=== PATIENT | female | born 1940 | race Caucasian/White ===

== ENCOUNTER 2017-09-02 07:07 | Inpatient (IN) | payer MEDICARE ==
[~2017-09-02] VITALS: Ht 162.6 cm; Wt 59.9 kg
[~2017-09-02 07:07] MED LIST: ACET325T14 PO; DEXA1TAB5 PO; DEXA4VIA39 IVPush; LEVE500T53 PO; NYST1000 PO; ONDA4TAB13 PO; PEG15DRO4 EACHEYE; SODI1TAB PO
[2017-09-02] MEDS ORDERED: ALBU18HF INH (07:18)
[2017-09-02] MEDS ORDERED: GUAI-103 PO (07:18)
[2017-09-02] MEDS ORDERED: SODIUM CHLORIDE 0.9% 1,000ML IVBOLUS ONE (07:30)
[2017-09-02 07:35] LABS: BASOPHILS % (AUTO) 0 % (0-1); EOSINOPHILS % (AUTO) 0 % (1-7); LYMPHOCYTES # (AUTO) 0.38 x10^3/uL (1-3.4); LYMPHOCYTES % (AUTO) 4 % (22-44); MD NO; MEAN CORPUSCULAR HEMOGLOBIN 32.7 pg (27.0-34.8); MEAN CORPUSCULAR HGB CONC 34.3 g/dL (32.4-35.8); MEAN CORPUSCULAR VOLUME 95.2 fL (80-100); MEAN PLATELET VOLUME 8.6 fL (7.4-10.4); MONOCYTES # (AUTO) 0.28 x10^3/uL (0.2-0.8); MONOCYTES % (AUTO) 3 % (2-9); NEUTROPHILS % (AUTO) 93 % (42-75); PLATELET COUNT 207 x10^3/uL (130-400); RED BLOOD COUNT 2.76 x10^6/uL (3.82-5.3); RED CELL DISTRIBUTION WIDTH 15.2 % (9.6-15.2)
[2017-09-02 07:45] LABS: INTERNATIONAL NORMALIZED RATIO 0.99 (0.93-1.1); PROTHROMBIN TIME 10.2 Seconds (9.6-11.5)
[2017-09-02 07:48] LABS: ALANINE AMINOTRANSFERASE 134 U/L (12-78); ALBUMIN 2.3 g/dL (3.4-5.0); ANION GAP 9 mmol/L (5-15); CALCIUM 7.7 mg/dL (8.5-10.1); CHLORIDE 111 mmol/L (98-107); CREATININE 0.55 mg/dL (0.55-1.02)
[2017-09-02 07:51] LABS: ALKALINE PHOSPHATASE 76 U/L (45-117); BILIRUBIN,TOTAL 0.7 mg/dL (0.2-1.0); TOTAL PROTEIN 5.4 g/dL (6.4-8.2)
[2017-09-02 08:19] LABS: CULTURE INDICATED? YES; MICROSCOPIC INDICATED
[2017-09-02] MEDS ORDERED: PANTOPRAZOLE 80 MG in SODIUM CHLORIDE 0.9% 50 ML IVPB ONE (08:46)
[2017-09-02] MEDS ORDERED: PANTOPRAZOLE 80 MG in SODIUM CHLORIDE 0.9% 100 ML IV SCH (08:46)
[2017-09-02] MEDS ORDERED: ONDANSETRON ODT 4 MG PO PRN ×2 (10:00→10:30)
[2017-09-02] MEDS ORDERED: ARTIFICIAL TEARS 15 DROP/ML BOTTLE EACHEYE PRN (10:00)
[2017-09-02] MEDS ORDERED: ALBUTEROL SULFATE 2.5 MG/3 ML NPPB PRN (10:00)
[2017-09-02] MEDS ORDERED: SODIUM CHLORIDE FLUSH 10ML SYR IVF PRN (10:00)
[2017-09-02] MEDS ORDERED: ACETAMINOPHEN 325 MG TABLET PO PRN ×2 (10:00→10:30)
[2017-09-02] MEDS: SODIUM CHLORIDE 0.9% 1,000 ML IV SCH (10:07)
[2017-09-02] MEDS: DEXAMETHASONE 1 MG TABLET PO SCH ×2 (10:30→18:30)
[2017-09-02] MEDS ORDERED: ONDANSETRON 2MG/ML, 2ML IVPush PRN (10:30)
[2017-09-02] MEDS ORDERED: DOCUSATE 100 MG CAPSULE PO PRN (10:30)
[2017-09-02] MEDS ORDERED: ENALAPRILAT 1.25 MG/ML, 2ML IVPush PRN (10:30)
[2017-09-02] MEDS: PANTOPRAZOLE 80 MG in SODIUM CHLORIDE 0.9% 100 ML IV SCH ×2 (10:30→20:30)
[2017-09-02] MEDS ORDERED: CEFTRIAXONE PMX 1GM/50ML 50 ML ONE (10:45)
[2017-09-02 10:48] LABS: THYROID STIMULATING HORMONE 0.53 mIU/L (0.358-3.740)
[2017-09-02] MEDS: NYSTATIN 500,000 UNITS/5 ML UDC PO SCH ×3 (11:00→21:00)
[2017-09-02] MEDS: CEFTRIAXONE PMX 1GM/50ML 50 ML IV SCH (11:19)
[2017-09-02 14:25] VITALS: BP 103/61
[2017-09-02] MEDS: SODIUM CHLORIDE 1 GM TABLET PO SCH ×2 (16:00→21:00)
[2017-09-02 19:56] VITALS: BP 119/70
[2017-09-02] MEDS ORDERED: morphine SULFATE 10 MG/ML, 1ML IVPush PRN (20:00)
[2017-09-02] MEDS: LEVETIRACETAM 500 MG TABLET PO SCH (21:00)
[2017-09-03 02:27] VITALS: BP 132/64
[2017-09-03] MEDS: DEXAMETHASONE 1 MG TABLET PO SCH ×2 (02:30→10:30)
[2017-09-03] MEDS: SODIUM CHLORIDE 0.9% 1,000 ML IV SCH ×2 (05:23→12:02)
[2017-09-03 05:41] LABS: ALANINE AMINOTRANSFERASE 115 U/L (12-78); ALBUMIN 2.1 g/dL (3.4-5.0); ANION GAP 5 mmol/L (5-15); CALCIUM 7.4 mg/dL (8.5-10.1); CHLORIDE 112 mmol/L (98-107); CREATININE 0.46 mg/dL (0.55-1.02)
[2017-09-03 05:42] LABS: BASOPHILS # (AUTO) 0.02 x10^3/uL (0-0.1); BASOPHILS % (AUTO) 0 % (0-1); EOSINOPHILS % (AUTO) 0 % (1-7); LYMPHOCYTES # (AUTO) 0.78 x10^3/uL (1-3.4); LYMPHOCYTES % (AUTO) 9 % (22-44); MD NO; MEAN CORPUSCULAR HEMOGLOBIN 32.3 pg (27.0-34.8); MEAN CORPUSCULAR HGB CONC 33.7 g/dL (32.4-35.8); MEAN CORPUSCULAR VOLUME 95.9 fL (80-100); MEAN PLATELET VOLUME 8.6 fL (7.4-10.4); MONOCYTES # (AUTO) 0.35 x10^3/uL (0.2-0.8); MONOCYTES % (AUTO) 4 % (2-9); NEUTROPHILS # (AUTO) 7.29 x10^3/uL (1.8-6.8); NEUTROPHILS % (AUTO) 86 % (42-75); PLATELET COUNT 192 x10^3/uL (130-400); RED BLOOD COUNT 2.54 x10^6/uL (3.82-5.3)
[2017-09-03 05:44] LABS: ALKALINE PHOSPHATASE 75 U/L (45-117); BILIRUBIN,TOTAL 0.7 mg/dL (0.2-1.0); TOTAL PROTEIN 4.8 g/dL (6.4-8.2)
[2017-09-03] MEDS: PANTOPRAZOLE 80 MG in SODIUM CHLORIDE 0.9% 100 ML IV SCH (06:09)
[2017-09-03] MEDS: NYSTATIN 500,000 UNITS/5 ML UDC PO SCH ×2 (06:09→11:00)
[2017-09-03] MEDS ORDERED: PANTOPROZOLE 40MG TABLET PO SCH (07:30)
[2017-09-03] MEDS: LEVETIRACETAM 500 MG TABLET PO SCH (08:02)
[2017-09-03] MEDS: SODIUM CHLORIDE 1 GM TABLET PO SCH (08:03)
[2017-09-03] MEDS: CEFTRIAXONE PMX 1GM/50ML 50 ML IV SCH (10:00)
[2017-09-03] MEDS ORDERED: LORazepam 2 MG/ML, 1ML IVPush PRN (13:00)
[2017-09-03] MEDS ORDERED: SCOPOLAMINE PATCH, 1.5MG PATCH.TD72 TD PRN (13:00)
[2017-09-03] MEDS ORDERED: SODIUM CHLORIDE FLUSH 10ML SYR IVF SCH (21:00)
[2017-09-04] MEDS: SODIUM CHLORIDE 0.9% 1,000 ML IV SCH ×2 (02:07→15:27)
[2017-09-04] MEDS: ATROPINE OPHTH SOLN 1%, 5ML BC PRN (05:36)
[2017-09-04] MEDS: MORPHINE SULFATE 4 MG/ML, 1ML IVPush PRN ×2 (05:51→10:46)
[2017-09-05] MEDS: SODIUM CHLORIDE 0.9% 1,000 ML IV SCH (04:47)
[2017-09-05] MEDS: ATROPINE OPHTH SOLN 1%, 5ML BC PRN ×3 (05:45→11:02)
== END 2017-09-05 15:08 | disposition expired | DRG 377 ==
LOC: ED 07:14 → EDIP 09:42 → 3NW 13:20
PROVIDERS: ADMIT Hospitalist; ATTEND Hospitalist
PROC: 0T9B70Z Drainage of Bladder with Drainage Device, Via Natural or Artificial Opening (ICD-10-PCS; principal; 2017-09-02)
DX: K92.2 Gastrointestinal hemorrhage, unspecified (principal); G93.40 Encephalopathy, unspecified; G93.6 Cerebral edema; C71.9 Malignant neoplasm of brain, unspecified; D62 Acute posthemorrhagic anemia; G81.94 Hemiplegia, unspecified affecting left nondominant side; N39.0 Urinary tract infection, site not specified; K92.1 Melena; E86.0 Dehydration; B37.9 Candidiasis, unspecified; Z51.5 Encounter for palliative care; H35.30 Unspecified macular degeneration; H54.8 Legal blindness, as defined in USA; Z66 Do not resuscitate
CPT/HCPCS: 36415; 70553; 74022; 80053; 80177; 81001; 82140; 82607; 83735; 84443; 85014; 85018; 85025; 85610; 86850; 86900; 87077; 87086; 87186; 93005; A9585; J0696; J2270; C9113; J2060; J7030